=== PATIENT | female | born 2005 | race African-American/Black ===

== ENCOUNTER 2023-11-09 06:47 | Emergency (ER) | payer OTHER ==
[~2023-11-09] VITALS: Ht 157.5 cm; Wt 65.8 kg
[2023-11-09 07:56] LABS: BASO % 0.4 % (0.0-1.0); EOS % 0.6 % (0.0-3.0); HEMATOCRIT 45.4 % (36.0-47.0); HEMOGLOBIN 15.5 g/dl (12.0-15.5); LYMPH # 1.4 10^3/uL (1.5-5.0); LYMPH % 20.7 % (24.0-44.0); MEAN CORPUSCULAR HEMOGLOBIN 33.8 pg (27.0-33.0); MEAN CORPUSCULAR HGB CONC 34.1 g/dl (32.0-36.5); MEAN CORPUSCULAR VOLUME 98.9 fl (80.0-96.0); MONO % 13.7 % (2.0-8.0); NEUTROPHILS # 4.4 10^3/uL (1.5-8.5); NEUTROPHILS % 64.3 % (36.0-66.0); PLATELET COUNT, AUTOMATED 283 10^3/uL (150-450); RED BLOOD COUNT 4.59 10^6/uL (4.00-5.40); WHITE BLOOD COUNT 6.9 10^3/uL (4.0-10.0)
[2023-11-09 08:23] LABS: ALBUMIN 3.7 G/DL (3.2-5.2); ALKALINE PHOSPHATASE 148 U/L (46-116); ALT/SGPT 23 U/L (7.0-40); AST/SGOT 27 U/L (<34); BILIRUBIN,DIRECT 0.3 MG/DL (<0.4); BILIRUBIN,TOTAL 0.8 MG/DL (0.3-1.2); BLOOD UREA NITROGEN 7 MG/DL (9-23); CALCIUM LEVEL 9.9 MG/DL (8.5-10.1); CARBON DIOXIDE LEVEL 29 MMOL/L (20-31); CHLORIDE LEVEL 101 MMOL/L (98-107); CREATININE FOR GFR 0.62 MG/DL (0.55-1.30); GLUCOSE, FASTING 109 MG/DL (60-100); HCG, SERUM QUALITATIVE NEGATIVE (NEGATIVE); POTASSIUM SERUM 3.8 MMOL/L (3.5-5.1); SODIUM LEVEL 136 MMOL/L (136-145); TOTAL PROTEIN 7.9 G/DL (5.7-8.2)
[2023-11-09 09:02] LABS: Trichomonas vaginalis (AMP) NOT DETECTED (NEGATIVE)
[2023-11-09 09:26] LABS: GC DNA AMPLIFICATION NEGATIVE (NEGATIVE)
[2023-11-09 09:43] VITALS: BP 147/74; TEMP 97.4; O2SAT 98
[2023-11-09] MEDS ORDERED: CEFD300C PO (09:48)
[2023-11-09] MEDS: cefTRIAXone SOD 250MG VIAL IM ONE (10:11)
[2023-11-09] MEDS: LIDOCAINE 1% SDV 5ML VIAL DILUENT ONE (10:12)
== END 2023-11-09 10:16 | disposition home or self-care (01) ==
LOC: M ED 06:47
DX: N30.00 Acute cystitis without hematuria (principal); F17.290 Nicotine dependence, other tobacco product, uncomplicated; Z79.2 Long term (current) use of antibiotics
CPT/HCPCS: 74176; 80048; 80076; 81001; 83605; 84703; 85025; 87040; 87086; 87661; 87810; 87850; 96372; 99283; J0696

== ENCOUNTER 2024-01-11 17:49 | Emergency (ER) | payer OTHER ==
[~2024-01-11] VITALS: Ht 157.5 cm; Wt 65.8 kg
[~2024-01-11 17:49] MED LIST: CEFD300C PO
[2024-01-11 21:31] VITALS: BP 135/80; TEMP 97.2; O2SAT 98
== END 2024-01-11 21:32 | disposition home or self-care (01) ==
LOC: M ED 17:49
DX: S66.911A Strain of unspecified muscle, fascia and tendon at wrist and hand level, right hand, initial encounter (principal); Y92.9 Unspecified place or not applicable; Y93.9 Activity, unspecified; Y99.9 Unspecified external cause status; Z79.2 Long term (current) use of antibiotics

== ENCOUNTER 2024-12-22 04:34 | Emergency (ER) | payer OTHER ==
[~2024-12-22] VITALS: Ht 157.5 cm; Wt 61.7 kg
[2024-12-22 05:01] LABS: BASO # 0.0 10^3/uL (0.0-0.2); BASO % 0.6 % (0.0-1.0); EOS # 0.0 10^3/uL (0.0-0.5); EOS % 0.8 % (0.0-3.0); LYMPH # 2.5 10^3/uL (1.5-5.0); LYMPH % 49.9 % (24.0-44.0); MONO # 0.5 10^3/uL (0.0-0.8); MONO % 9.5 % (2.0-8.0); NEUTROPHILS # 1.9 10^3/uL (1.5-8.5); NEUTROPHILS % 39.0 % (36.0-66.0); PLATELET COUNT, AUTOMATED 212 10^3/uL (150-450)
[2024-12-22 05:33] LABS: CALCIUM LEVEL 9.4 MG/DL (8.5-10.1); CARBON DIOXIDE LEVEL 25 MMOL/L (20-31); CHLORIDE LEVEL 100 MMOL/L (98-107); CK-MB VALUE MASS < 1.0 NG/ML (<3.6); CREATININE FOR GFR 0.62 MG/DL (0.55-1.30); GLOMERULAR FILTRATION RATE > 90.0 (>60); POTASSIUM SERUM 3.6 MMOL/L (3.5-5.1); SODIUM LEVEL 138 MMOL/L (136-145)
[2024-12-22 05:34] LABS: CPK CREATINE PHOSPHOKINASE 107 U/L (34-145)
[2024-12-22 06:35] LABS: CK-MB VALUE MASS < 1.0 NG/ML (<3.6)
[2024-12-22 06:37] LABS: CPK CREATINE PHOSPHOKINASE 93 U/L (34-145)
[2024-12-22] MEDS ORDERED: ISOVUE-370 76% 100 ML VIAL As Ordered ONE (08:53)
[2024-12-22] MEDS ORDERED: HOME MED LIST COMPLETE! XX SCH (09:45)
[2024-12-22 12:14] VITALS: BP 132/64; TEMP 97.3; O2SAT 100
== END 2024-12-22 12:16 | disposition home or self-care (01) ==
LOC: M ED 04:34
DX: R07.9 Chest pain, unspecified (principal); F17.290 Nicotine dependence, other tobacco product, uncomplicated; Z86.79 Personal history of other diseases of the circulatory system
CPT/HCPCS: 36415; 71045; 71275; 80048; 82550; 82553; 84484; 85025; 85379; 93005; 93041; 94760; 99285; Q9967

== ENCOUNTER 2025-02-15 16:53 | Emergency (ER) | payer OTHER ==
[2025-02-15] MEDS: ACETAMINOPHEN 500 MG TAB PO ONE (17:21)
[2025-02-15 18:10] LABS: HCG, SERUM QUALITATIVE NEGATIVE (NEGATIVE)
[2025-02-15] MEDS: KETOROLAC 60 MG/2 ML VIAL IM ONE (19:17)
[2025-02-15] MEDS ORDERED: METH-1164 PO (19:37)
[2025-02-15] MEDS ORDERED: NAPR-837 PO (19:37)
[2025-02-15 19:47] VITALS: BP 137/74
[2025-02-15 20:09] VITALS: TEMP 97.4; O2SAT 98
== END 2025-02-15 20:13 | disposition home or self-care (01) ==
LOC: M ED 16:53 → EDBD 16:53 → M ED 20:13
DX: S83.92XA Sprain of unspecified site of left knee, initial encounter (principal); X50.0XXA Overexertion from strenuous movement or load, initial encounter; Y92.89 Other specified places as the place of occurrence of the external cause; Y93.89 Activity, other specified; Y99.1 Military activity; Z79.1 Long term (current) use of non-steroidal anti-inflammatories (NSAID); Z79.899 Other long term (current) drug therapy
CPT/HCPCS: 73564; 84703; 96372; 99284; J1885

== ENCOUNTER 2025-02-22 13:04 | Emergency (ER) | payer OTHER ==
[~2025-02-22] VITALS: Ht 160 cm; Wt 52.3 kg
[~2025-02-22 13:04] MED LIST changes: +METH-1164 PO; +NAPR-837 PO
[2025-02-22 15:47] VITALS: BP 135/85; TEMP 98.8; O2SAT 98
== END 2025-02-22 16:34 | disposition home or self-care (01) ==
LOC: M ED 13:04
DX: M23.92 Unspecified internal derangement of left knee (principal); M25.462 Effusion, left knee; W22.8XXA Striking against or struck by other objects, initial encounter; Y92.89 Other specified places as the place of occurrence of the external cause; Y93.89 Activity, other specified; Y99.1 Military activity; Z79.1 Long term (current) use of non-steroidal anti-inflammatories (NSAID); Z79.899 Other long term (current) drug therapy

== ENCOUNTER 2025-03-26 21:57 | Inpatient (IN) | payer OTHER ==
[~2025-03-26] VITALS: Ht 160 cm; Wt 56.0 kg
[2025-03-26 22:33] LABS: PLATELET COUNT, AUTOMATED 386 10^3/uL (150-450)
[2025-03-26 22:57] LABS: ALT/SGPT 34 U/L (7.0-40); AST/SGOT 84 U/L (<34); CALCIUM LEVEL 9.2 MG/DL (8.5-10.1); CARBON DIOXIDE LEVEL 25 MMOL/L (20-31); CHLORIDE LEVEL 103 MMOL/L (98-107); CREATININE FOR GFR 0.55 MG/DL (0.55-1.30); GLOMERULAR FILTRATION RATE > 90.0 (>60); POTASSIUM SERUM 3.6 MMOL/L (3.5-5.1); SALICYLATE LEVEL < 3.0 MG/DL (<30); SODIUM LEVEL 141 MMOL/L (136-145)
[2025-03-26 23:00] LABS: HCG, SERUM QUALITATIVE NEGATIVE (NEGATIVE)
[2025-03-26 23:11] LABS: ETHYL ALCOHOL (ETHANOL) 0.315 % (0.000-0.010)
[2025-03-26 23:31] LABS: AMPHETAMINES LEVEL URINE NEGATIVE (NEGATIVE); BARBITURATES URINE NEGATIVE (NEGATIVE); BENZODIAZEPINES URINE NEGATIVE (NEGATIVE); COCAINE METABOLITE URINE NEGATIVE (NEGATIVE); METHADONE URINE NEGATIVE (NEGATIVE)
[2025-03-26 23:32] LABS: CANNABINOIDS URINE NEGATIVE (NEGATIVE); OPIATES URINE NEGATIVE (NEGATIVE); PHENCYCLIDINE URINE NEGATIVE (NEGATIVE)
[2025-03-27] MEDS ORDERED: VITA50TA47 PO (05:22)
[2025-03-27] MEDS ORDERED: NALT50TA4 PO (05:22)
[2025-03-27] MEDS ORDERED: FOLI1TAB11 PO (05:22)
[2025-03-27] MEDS ORDERED: HOME MED LIST COMPLETE! XX SCH (05:25)
[2025-03-27] MEDS: THIAMINE 100 MG TAB PO SCH (06:03)
[2025-03-27] MEDS ORDERED: FOLIC ACID 1 MG TAB PO SCH (09:00)
[2025-03-27] MEDS: MULTIVITAMINS/MINERALS THERAP 1 TAB PO SCH (09:24)
[2025-03-27] MEDS: FOLIC ACID 1 MG TAB PO SCH (09:24)
[2025-03-27] MEDS: NALTREXONE 50 MG TAB PO SCH (10:22)
[2025-03-27] MEDS ORDERED: MOM 30 ML SUSPENSION UDC PO PRN (15:30)
[2025-03-27] MEDS ORDERED: ACETAMINOPHEN 325 MG TAB PO PRN (15:30)
[2025-03-27] MEDS ORDERED: IBUPROFEN 400 MG TAB PO PRN (15:30)
[2025-03-27] MEDS ORDERED: MAALOX 30 ML SUSP *UDC PO PRN (15:30)
[2025-03-27 16:50] VITALS: BP 142/91; TEMP 97.7; O2SAT 100
[2025-03-28 06:21] VITALS: BP 119/79; TEMP 97.6; O2SAT 100
[2025-03-28] MEDS: NICOTINE 21 MG/24 HR 1 EA TRANSDERMAL TD SCH (09:41)
[2025-03-28 15:34] LABS: VITAMIN B12 LEVEL 464 PG/ML (211-911)
[2025-03-28 18:55] VITALS: BP 136/85; TEMP 97.4
[2025-03-28] MEDS: SERTRALINE HCL 25 MG TABLET PO SCH (20:09)
[2025-03-28] MEDS: traZODone 50 MG TAB PO PRN (20:09)
[2025-03-29 06:25] VITALS: BP 112/58; TEMP 97.7; O2SAT 98
[2025-03-29 15:12] VITALS: BP 133/74; TEMP 97.3; O2SAT 95
[2025-03-30 06:32] VITALS: BP 106/52; TEMP 98.1; O2SAT 99
[2025-03-30] MEDS: THIAMINE 100 MG TAB PO SCH (08:39)
[2025-03-30 15:15] VITALS: BP 137/72; TEMP 97.1; O2SAT 100
[2025-03-30] MEDS ORDERED: PILL CUTTER 1 EACH XX ONE (20:23)
[2025-03-31 06:17] VITALS: BP 127/71; TEMP 97.8; O2SAT 98
[2025-03-31] MEDS ORDERED: TRAZ-252 PO (08:12)
[2025-03-31] MEDS ORDERED: SERT25TA21 PO (08:12)
== END 2025-03-31 09:00 | disposition home or self-care (01) | DRG 881 ==
LOC: M ED 03-27 12:04 → M ED INP 03-27 15:26 → M PSY 03-27 16:42
PROVIDERS: ADMIT General Practice; ATTEND General Practice
DX: F32.A Depression, unspecified (principal); R45.851 Suicidal ideations; F10.10 Alcohol abuse, uncomplicated; F43.25 Adjustment disorder with mixed disturbance of emotions and conduct; F17.200 Nicotine dependence, unspecified, uncomplicated; E53.8 Deficiency of other specified B group vitamins; D75.89 Other specified diseases of blood and blood-forming organs; M23.611 Other spontaneous disruption of anterior cruciate ligament of right knee